=== PATIENT | female | born 1970 | race Hispanic/Latino ===

== ENCOUNTER 2023-01-02 09:20 | Outpatient (CLI) | payer OTHER ==
[2023-01-02] MEDS ORDERED: Iopamidol 370 76% 100 ML VIAL ONE (09:43)
== END 2023-01-02 09:21 | disposition home or self-care (01) ==
LOC: CSHCT 09:20
PROVIDERS: ATTEND Internal Medicine Hematology & Oncology
DX: R91.1 Solitary pulmonary nodule (principal); C50.919 Malignant neoplasm of unspecified site of unspecified female breast; I82.B12 Acute embolism and thrombosis of left subclavian vein
CPT/HCPCS: 71260; 82565; Q9967